=== PATIENT | male | born 1950 | race Caucasian/White ===

== ENCOUNTER 2021-12-06 22:24 | Inpatient (IN) | payer MEDICARE, OTHER ==
[~2021-12-06] VITALS: Ht 175.3 cm; Wt 80.9 kg
[2021-12-07 01:41] LABS: HEMOGLOBIN 14.2 gm/dl (14.0-17.5); RED BLOOD COUNT 4.8 M/UL (4.20-5.50); WHITE BLOOD COUNT 10.4 K/UL (4.5-11.0)
[2021-12-07] MEDS ORDERED: PRILOSEC OTC20 MG PO (10:11)
--- NOTE | 2021-12-07 14:22 | NUR ---
RECIEVED REPORT FROM [facility]MI[facility]. PT LISBETH AND MD DISCUSSING SURGERY WITH FAMILY.
[2021-12-07] MEDS ORDERED: ASPIRIN EC81 MG PO (18:37)
[2021-12-07] MEDS ORDERED: LOPRESSOR 25 MG25 MG PO (18:37)
[2021-12-07] MEDS ORDERED: ATORVASTATIN CA20 MG PO (18:37)
--- NOTE | 2021-12-07 18:52 | NUR ---
REPORT CALLED TO BANDAR TEJADA AT [facility]
[2021-12-08 01:36] LABS: HEMOGLOBIN 14.5 gm/dl (14.0-17.5); RED BLOOD COUNT 4.84 M/UL (4.20-5.50); WHITE BLOOD COUNT 12.3 K/UL (4.5-11.0)
[2021-12-08 02:11] LABS: BUN/CREATININE RATIO 13 (0-10)
--- NOTE | 2021-12-08 02:29 | NUR ---
PT TRANSFERED TO [facility] VIA EMS WITH RN. PT STABLE WITH NO COMPLAINTS AT THE TIME OF TRANSFER. HYPERTENSION REPORTED TO MD PRIOR TO TRANSFERING PT, MEDICAITON ADMINISTERED AND EMS MADE AWARE. PT LEFT ON HEPARIN DRIP AT 11.5ML/HR. UPDATES CALLED TO [facility] WHEN PT LEFT. TRANSFER TO [facility]. RIGHT RADIAL CATH SITE ASSESSED BY TWO RNS, FOUND WITHIN NORMAL LIMITS. PT LEFT WITH COMPRESSION BAND IN PLACE BUT COMPLETELY DEFLATED PER PROTOCOL, TRANSFERING RN WITH INFLATION SYRINGE. PATENT 18G IV IN LEFT AC WITH HEPARIN RUNNING.
== END 2021-12-08 01:40 | disposition short-term general hospital (02) | DRG 282 ==
LOC: PROG CARE 22:24
PROVIDERS: Internal Medicine; ADMIT Internal Medicine
PROC: B24BZZZ Ultrasonography of Heart with Aorta (ICD-10-PCS; principal; 2021-12-07)
PROC: B2111ZZ Fluoroscopy of Multiple Coronary Arteries using Low Osmolar Contrast (ICD-10-PCS; 2021-12-07)
PROC: 4A023N7 Measurement of Cardiac Sampling and Pressure, Left Heart, Percutaneous Approach (ICD-10-PCS; 2021-12-07)
DX: I21.4 Non-ST elevation (NSTEMI) myocardial infarction (principal); Z20.822 Contact with and (suspected) exposure to COVID-19; F17.210 Nicotine dependence, cigarettes, uncomplicated; Z79.82 Long term (current) use of aspirin; Z90.49 Acquired absence of other specified parts of digestive tract; Z90.81 Acquired absence of spleen; Z82.49 Family history of ischemic heart disease and other diseases of the circulatory system
CPT/HCPCS: ECHO; 36415; 71045; 80048; 80061; 82550; 82553; 83036; 83880; 84439; 84443; 84484; 85025; 85347; 85610; 85730; 93005; 93306; 99152; 99153; C1769; C1887; C1894; J1644; J2250; J3010; Q9967